=== PATIENT | male | born 1960 | race Caucasian/White ===

== ENCOUNTER 2016-03-16 15:51 | Inpatient (IN) | payer MEDICAID ==
[2016-03-16] MEDS ORDERED: MORPHINE SULFATE 4 MG/ML SYRINGE ONE ×2 (16:45→18:27)
[2016-03-16] MEDS ORDERED: SODIUM CHLORIDE 0.9% 1,000 ML ONE (16:45)
[2016-03-16] MEDS ORDERED: KETOROLAC TROMETHAMINE 30 MG/ML 1 ML VIAL ONE (16:45)
[2016-03-16] MEDS ORDERED: TETANUS,DIPHTHERIA TOXOID SYRINGE IM V ONE ×2 (16:47→16:55)
[2016-03-16 17:07] LABS: ABSOLUTE NEUTROPHIL COUNT 14.7 K/mm3 (1.8-7.7); BASO % 0.1 % (0.2-1.0); EOS % 0.1 % (0.9-2.9); HEMOGLOBIN 11.4 gm/l (14.0-18.0); IMM NEUT # 0.1 K/mm3 (0-0.2); IMM NEUT% 0.4 % (0-1); LYMPH # 1.1 (1.0-4.8); LYMPH % 6.6 % (15-45); MEAN CELL VOLUME 93.3 fl (80.0-94.0); MEAN CORPUSCULAR HEMOGLOBIN 30.4 pg (27.0-31.0); MEAN CORPUSCULAR HGB CONC 32.6 g/dl (33.0-37.0); MEAN PLATELET VOLUME 9.7 fl (7.4-10.4); MONO # 0.9 (0.0-0.8); MONO % 5.2 % (4-12); NEUT % 87.6 % (43-75); PLATELET COUNT 262 K/mm3 (130-400); RED CELL DISTRIBUTION WIDTH 11.9 % (11.5-14.5)
[2016-03-16] MEDS ORDERED: CEFTRIAXONE 1 GRAM DUPLEX 50 ML IV ONE (17:15)
[2016-03-16 17:25] LABS: ALB/GLOB RATIO 1.3 (>1.0); ALBUMIN 3.5 gm/dL (3.5-5.7); C-REACTIVE PROTEIN 11.7 mg/dl (<1.0); CALCIUM 8.6 mg/dL (8.6-10.3)
--- NOTE | 2016-03-16 17:28 | RAD ---
EXAMINATION:HAND-RIGHT 3 VIEWS Clinical indication: Possible foreign body at the base of the abdomen. Technique: 3 views of the right hand were obtained. Comparison: None FINDINGS: There is a linear 7 x 3 mm opacity involving the hypothenar aspect of the right hand. This is slightly palmar in orientation and parallels the first metacarpal. No adjacent fracture or focal destruction is identified. No soft tissue gas is seen. There is posttraumatic deformity of the right fifth metacarpal. Periarticular osteophyte formation is also noted at the base of the fifth carpometacarpal articulation. Osteoarthritic change also is noted at the first metacarpal phalangeal joint. There is no dislocation identified. IMPRESSION: 1. Linear 7 x 3 mm radiopaque foreign body hypothenar aspect right hand. 2. Posttraumatic deformity right fifth metacarpal. 3. Osteoarthritis at the base of the fifth carpometacarpal joint. There is also mild degenerative changes of the first metacarpal phalangeal joint.
[2016-03-16] MEDS ORDERED: VANCOMYCIN HCL 1.5 G in SODIUM CHLORIDE 0.9% 500 ML IV ONE (17:45)
[2016-03-16] MEDS ORDERED: MIDAZOLAM HCL 1 MG/ML 2ML VIAL ONE ×2 (18:27→20:15)
[2016-03-16] MEDS ORDERED: LACTATED RINGERS 1,000 ML ONE (19:53)
[2016-03-16] MEDS ORDERED: PROPOFOL 20 ML IV ONE (20:13)
[2016-03-16] MEDS ORDERED: SUCCINYLCHOLINE CHL 20 MG/ML DOSE ONE (20:13)
[2016-03-16] MEDS ORDERED: LIDOCAINE 2% (PRES FREE) 5 ML VIAL ONE (20:13)
[2016-03-16] MEDS ORDERED: FENTANYL 100 MCG/2 ML VIAL ONE ×2 (20:15→20:55)
[2016-03-16] MEDS ORDERED: HYDROMORPHONE HCL 2 MG/ML SYRINGE ONE (21:02)
[2016-03-16] MEDS ORDERED: ONDANSETRON 4 MG/2ML 2 ML VIAL ONE (21:02)
[2016-03-16] MEDS ORDERED: SODIUM CHLORIDE 0.9% 250 ML IV ONE (21:50)
[2016-03-16] MEDS ORDERED: VANCOMYCIN HCL 1.5 G in SODIUM CHLORIDE 0.9% 500 ML IV SCH (22:00)
[2016-03-16] MEDS ORDERED: ONDANSETRON 4 MG/2ML 2 ML VIAL IV PRN (22:09)
[2016-03-16] MEDS: OXYCODONE HCL 5 MG TABLET PO PRN (22:25)
[2016-03-16] MEDS ORDERED: SODIUM CHLORIDE 0.9% FLUSH 10 ML ONE (22:50)
[2016-03-16 22:58] VITALS: BMI 25.9
[2016-03-16] MEDS ORDERED: SODIUM CHLORIDE 0.9% 100 ML IV ONE (23:22)
[2016-03-16] MEDS ORDERED: PUMP TUBING ONE (23:22)
[2016-03-16] MEDS: CEFAZOLIN SODIUM 1 GRAM PREMIX 1 G in Premix (D5W) 50 ml 1 EACH IV SCH (23:25)
[2016-03-16] MEDS: SODIUM CHLORIDE 0.9% 100 ML BAG IV SCH (23:26)
[2016-03-17] MEDS: OXYCODONE HCL 5 MG TABLET PO PRN ×5 (01:16→22:28)
[2016-03-17] MEDS: VANCOMYCIN HCL 1.25 G in SODIUM CHLORIDE 0.9% 250 ML IV SCH ×2 (05:51→17:44)
[2016-03-17] MEDS: CEFAZOLIN SODIUM 1 GRAM PREMIX 1 G in Premix (D5W) 50 ml 1 EACH IV SCH ×3 (08:25→23:29)
--- NOTE | 2016-03-17 10:15 | HP ---
Bryan DANIEL [id number] : 1960 ORTHOPEDIC EMERGENCY DEPARTMENT CONSULTATION DATE OF CONSULTATION: March 16, 2016 HISTORY OF PRESENT ILLNESS: Bryan Daniel is a 56-year-old right-handed male seen for orthopedic hand consultation for a draining abscess of the right hand. The patient is examined with his permission in the presence of his friends. Imaging studies and medical records are reviewed. HISTORY OF INJURY: The patient states that he noted right-hand pain about four days ago. He states that he was doing a lot of wood cutting with using a hatchet. He states that it was a very manually intensive work. About two days ago the hand became swollen and became somewhat painful. Today it has become more painful and notes that there has been an area in the palmar surface of the hand that has been draining. He presented to the emergency department at [facility] where he was examined by Dr. Alicea the emergency department physician. The patient is not certain whether there was a puncture wound of some type into his hand or whether a sliver may have entered this hand. Dr. Alicea examined him, noted that there was a draining abscess, took some laboratory work, identified a markedly elevated white count and CRP and he then did a superficial puncture of the wound and noted that there was drainage and contacted me for orthopedic consultation. Cultures were also taken by Dr. Alicea at the time of his evaluation. The patient's current complaints are of pain in the right hand. He is unable to make a full fist, he has intact sensation, but has difficulty moving his fingers. PAST MEDICAL HISTORY: He denies any history of systemic illnesses although admits that he may have had a history of hypertension. PAST SURGICAL HISTORY: Hernia repair. SOCIAL HISTORY: He smokes one pack of cigarettes per day. He drinks alcohol occasionally and he occasionally smokes marijuana. He is employed as a construction services technician. REVIEW OF SYSTEMS: HEENT: Unremarkable. CARDIOVASCULAR: Unremarkable. GI: Unremarkable. : Unremarkable. ORTHOPEDIC: See chief complaint. PHYSICAL EXAMINATION: GENERAL: Reveals a well nourished, well developed male who is cooperative with the examination. VITAL SIGNS: The patient is 6 feet tall and weighs 185 pounds. FOCUSED EXAM: Inspection of the right hand indicates a very heavily calloused hand, multiple healing lacerations are noted on the hand. On the central portion of the hand overlying the thenar eminence there is a draining abscess with purulent drainage. There is palmar erythema. He has fingers in the flexed position. He has pain when we passively extend the fingers. Sensation is grossly intact with expected sharp dull discrimination. He has good peripheral pulses. IMAGING STUDIES: X-rays of the right hand indicate the presence of a radiopaque foreign body wtih the density similar to wood in the area of the web space between the thumb and the second metacarpal. DIAGNOSTIC IMPRESSION: Abscess right hand. PLAN: We discussed with the patient various treatment options. Because of the size of the abscess and drainage and the fact that he has developed swelling, elevated white count and pain upon passive extension we are going to treat this as being a surgical emergency. We discussed with him going to the operating room for an incision and drainage of exploration of the hand. The surgery itself has been explained to him in detail along with expectant, benefits, potential risks, complications but alternative methods of treatment. He appears to understand and requests that we proceed with surgery. He will be admitted for wound care and antibiotics. Job [id number] Cc: Broseley Janiya
--- NOTE | 2016-03-17 10:37 | OP ---
Bryan BARBER : 1960 [id number] DATE OF SERVICE: March 16, 2016 SURGEON: Maxwell Momin D.O. ANESTHESIA: By Jaida PerryNKayla PREOPERATIVE DIAGNOSIS: Abscess right-hand. POSTOPERATIVE DIAGNOSIS: Deep abscess right-hand including carpal tunnel. SURGERY PERFORMED: EXPLORATION OF HAND WITH INCISION OF CARPAL TUNNEL AND IRRIGATION AND DRAINAGE WITH INTRAOPERATIVE CULTURES. INDICATIONS FOR SURGERY: This is a 56-year-old male who has presented to the emergency department within infected hand with purulent drainage. He is in extreme pain. He had an elevated white count, elevated CRP. It was felt that he had an abscess that was a surgical emergency. He was taken to the operative suite. The surgery itself is been explained the patient in detail along with the expected benefits and potential risks and complications in alternative methods of treatment, he appears to understand and request that we proceeded with the surgery. DESCRIPTION OF PROCEDURE: This 56-year-old male was taken to the operating suite and positioned on the operating table. General anesthesia was administered by the duty manager. After adequate anesthesia has been obtained a tourniquet was placed about the right. The patient's right arm. A time out was performed and the patient and operative site were confirmed. The right upper extremity was prepped and draped in the usual fashion. The tourniquet was not elevated however. We debrided the palmar surface of the hand around the thenar eminence where there was excoriation of soft tissue and some superficial drainage. However, after we have completed our superficial debridement and cultures were taken it was felt that further exploration was indicated because of the tension in the hand and the patient's preoperative symptoms. We then with a #15 blade made a sharp incision into the carpal tunnel. There was immediate return of pus. We then took additional cultures and express the remainder of the pus from within the carpal tunnel. We then irrigated the carpal tunnel with 1 L of normal saline solution. The carpal tunnel was then packed with 0.25 inch Iodoform gauze. A bulky dressings then enforced with a volar fiberglass split was applied. The patient tolerated the procedure well and was sent to the postanesthesia recovery in satisfactory and stable condition. The tourniquet was not inflated the entire procedure was performed with the assistance of Loupe magnification. The estimated blood loss was minimal. Job [id number] Cc: [facility]
[2016-03-17] MEDS: SODIUM CHLORIDE 0.9% 100 ML BAG IV SCH ×2 (22:29→23:29)
[2016-03-18] MEDS: OXYCODONE HCL 5 MG TABLET PO PRN ×5 (05:09→21:38)
[2016-03-18] MEDS: VANCOMYCIN HCL 1.25 G in SODIUM CHLORIDE 0.9% 250 ML IV SCH (05:09)
[2016-03-18 06:06] LABS: VANCOMYCIN TROUGH 7.5 ug/ml (5.0-10.0)
[2016-03-18 07:55] LABS: ABSOLUTE NEUTROPHIL COUNT 11.6 K/mm3 (1.8-7.7); BASO % 0.2 % (0.2-1.0); EOS % 0.3 % (0.9-2.9); HEMATOCRIT 35.7 % (32.0-52.0); HEMOGLOBIN 11.5 gm/l (14.0-18.0); IMM NEUT% 0.3 % (0-1); LYMPH # 1.2 (1.0-4.8); LYMPH % 8.4 % (15-45); MEAN CELL VOLUME 94.7 fl (80.0-94.0); MEAN CORPUSCULAR HEMOGLOBIN 30.5 pg (27.0-31.0); MEAN CORPUSCULAR HGB CONC 32.2 g/dl (33.0-37.0); MEAN PLATELET VOLUME 10.5 fl (7.4-10.4); MONO # 0.9 (0.0-0.8); MONO % 6.5 % (4-12); NEUT % 84.3 % (43-75); PLATELET COUNT 232 K/mm3 (130-400); RED CELL DISTRIBUTION WIDTH 11.7 % (11.5-14.5)
[2016-03-18] MEDS ORDERED: VANCOMYCIN HCL 1 G in SODIUM CHLORIDE 0.9% 230 ML IV ONE (08:00)
[2016-03-18] MEDS: CEFAZOLIN SODIUM 1 GRAM PREMIX 1 G in Premix (D5W) 50 ml 1 EACH IV SCH ×2 (08:21→16:20)
--- NOTE | 2016-03-18 08:33 | PDOC43 ---
- Subjective Findings: reasonable comfortable overnight- overall states that his hand is feeling better Subjective: Denies Nausea, Denies Vomiting - Objective Vital Signs Temperature 98.4 F 03/18/16 08:01 Pulse Rate 60 03/18/16 08:01 Respiratory Rate 18 03/18/16 08:01 Blood Pressure 123/73 03/18/16 08:01 O2 Saturation by Pulse Oximetry 98 03/18/16 08:01 Oxygen Delivery Method Room Air Oxygen Flow Rate 0 Laboratory 03/18/16 05:30 03/18/16 05:15 03/18/16 03/18/16 05:30 05:15 RBC 3.77 L MCV 94.7 H MCHC 32.2 L Estimated GFR 101 H Active Medication Orders Category Date Time Status Vancomycin HCl 1 g Med 03/18/16 08:00 Active Sodium Chloride 0.9% 230 ml IV X1 Intake and Output 03/16/16 03/17/16 03/18/16 23:59 23:59 23:59 Intake Total 780 200 Balance 780 200 General: Afebrile (Tmax<100 x24 hours) HEENT: Mucous membr. moist/pink Lungs: Normal Air Movement Cardiovascular: Regular Rate and Rhythm Abdomen: Soft Skin: Normal Color, Warm, Dry, Intact Neurological: Alert, Oriented x 4 Psych/Mental Status: Normal Affect, Normal Mood - Right Upper Extremity Incision: Dressing Clean/Dry/Intact (changed today. He does have some superficial maceration with epidermolysis surrounding incision which is packed with iodophore gauze. Minimal drainage- non purulent. Non-malodorous. Minimal surrounding erythema. Moderate diffuse edema) Motor: Finger Extensors: 4/5 (restricted but not acutely painful), Wrist Flexors : 4/5 (restricted but not acutely painful) Gross Sensation to Light Touch: Present: Median Nerve, Ulnar Nerve, Radial Nerve Capillary Refill: < 3 Seconds Motion: gentle active/passive finger flexion is reasonably well tolerated without marked pain - Problems (1) Palmar space infection of right hand Status: Acute Assessment/Plan: Clinically improved as far as exam, WBC, and fevers are concerned. Looks like isolate is likely MRSA although still waiting for ID of gram negative bacilli. I suspect that he will need a relatively extended period of treatment including Abx, local wound care and even possibility of repeat I/D depending on response to treatment. I did ask for hospitalist consult today to assist with treatment plan and appreciate their input specifically regarding antibiotic choice and outpatient medical management Will follow. D/C [facility] and social group worker are working to establish primary care physician as well as work with access/insurance issues
[2016-03-18] MEDS ORDERED: LORAZEPAM 2 MG/ML 1ML SDV IV PRN (11:20)
[2016-03-18] MEDS ORDERED: LIDOCAINE 1% (PRES FREE) 5 ML VIAL PF PRN (11:20)
--- NOTE | 2016-03-18 11:24 | CONS ---
Bryan [place] [id number] DATE OF ADMISSION: March 16, 2016 DATE OF CONSULTATION: March 18, 2016 PHYSICIAN REQUESTING CONSULTATION: Dr. Michael Gibbons REASON FOR CONSULTATION: For assistance in managing infection involving the right hand. PROCEDURES: PERFORMED DURING THE HOSPITALIZATION: Include exploration of the hand with incision of the carpal tunnel and irrigation and drainage with intraoperative cultures performed in March [address] Momin. TO SUMMERIZE THE ADMISSION AND HOSPITAL COURSE: The patient is a 56-year-old right handed male without any chronic medical problems who presented with complaints of right hand pain and swelling approximately 4 to 5 days prior to admission. He does not recall any injury. He is active with using his hands outdoors. Has been cutting lots of wood at home with a hatchet. 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 He does not recall any puncture wounds. When he initially presented, he had an abscess on his hand and had a little bit of drainage that was cultured by Dr. Alicea. That culture grew methicillin resistant Staphylococcus aureus. He subsequently underwent intraoperative incision and drainage of the wound with two culture perform intraoperatively, all three cultures are growing methicillin resistant Staphylococcus aureus. There is gram negative bacilli on the gram stain seen in one of the intraoperative cultures. At this time no growth has been identified and he has been treated with vancomycin monotherapy with improvement in his symptoms. He has been afebrile throughout his stay. His white blood cell count is improving down from 16.8 to 13.7. He did have an elevated sed rate of 30. He had plain film x-ray's of the right hand showing a linear foreign body measuring 7 x 3 mm, but no evidence of osteomyelitis. The foreign body was not described on the operative report, but presumably was irrigated out with the procedure. PAST MEDICAL HISTORY: Negative for any chronic medical problems. He denies any prior hospitalizations or any regular healthcare. PAST SURGICAL HISTORY: Significant for a right inguinal hernia repair as a child. ALLERGIES: He has no known drug allergies. CURRENT MEDICATIONS: He takes no prescription medications. FAMILY HISTORY: Not contributory. SOCIAL HISTORY: He is currently staying with a friend. He has smoked a pack of cigarettes a day for 30 pack years. 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 He drinks occasional alcohol and occasional marijuana. He works in construction. He is single. He has no local family and no dependents. PHYSICAL EXAMINATION: VITAL SIGNS: Currently, show a temperature of 98.4, pulse 60, blood pressure 123/73, respirations 18, oxygen saturation 98% on room air. Body mass index is 26.0, weight is 86.9 kg. GENERAL: This is well-developed, well-nourished male in no acute distress. HEENT: Unremarkable. NECK: Supple without lymphadenopathy or thyromegaly. LUNGS: Clear to auscultation bilaterally. CARDIOVASCULAR: Reveals a regular rate and rhythm without a murmur. ABDOMEN: Soft, nontender, nondistended with positive bowel sounds. EXTREMITIES: Show a surgical dressings over the right hand. No evidence of cellulitis of the arm is seen. His lower extremities show no edema. NEUROLOGIC: Nonfocal. LABORATORY STUDIES: He had initial CBC with a white count of 16.8 now down to 13.7. His hemoglobin was 11.5 and his platelet count was 232,000. His chemistry profile showed a sodium of 134, potassium 3.9, carbon dioxide 26, BUN 18, creatinine 1.0, glucose was 124. Liver function tests were normal. His C-reactive protein was elevated at 11.7 and no other laboratory studies were done. DIAGNOSTICS: He had an x-ray to the right hand with the result as mentioned above. ASSESSMENT: The patient has deep space right hand infection with abscess, status post incision and drainage on March 16 with methicillin resistant Staphylococcus aureus and unspecified gram negative bacilli currently responding to vancomycin. PLAN: To consult with [facility] regarding optimal therapy. Concern about possible IV drug use and the risk of placement of a PICC line is a concern. It is unclear though whether he would be a candidate for any oral therapies especially given lack of resources. He will likely need wound care follow up and IV medications and will work on obtaining follow up with infectious disease if their able to see the patient who lives in [place]. JOB: [id number] CC: Dr. Michael Gibbons [facility] in [place]
[2016-03-18] MEDS ORDERED: ENEMA--adult 1 EACH PR PRN (16:30)
[2016-03-18] MEDS: POLYETHYLENE GLYCOL 3350 17 G POWD.SUSP PO PRN (17:28)
[2016-03-18] MEDS: VANCOMYCIN HCL 2 G in SODIUM CHLORIDE 0.9% 500 ML IV SCH (17:53)
[2016-03-18] MEDS: DOCUSATE SODIUM 100 MG CAPSULE PO SCH (21:39)
[2016-03-19] MEDS: SODIUM CHLORIDE 0.9% 100 ML BAG IV SCH (00:15)
[2016-03-19] MEDS: CEFAZOLIN SODIUM 1 GRAM PREMIX 1 G in Premix (D5W) 50 ml 1 EACH IV SCH ×2 (00:15→09:00)
[2016-03-19] MEDS: OXYCODONE HCL 5 MG TABLET PO PRN ×7 (02:17→23:33)
[2016-03-19] MEDS: VANCOMYCIN HCL 2 G in SODIUM CHLORIDE 0.9% 500 ML IV SCH ×2 (06:05→19:17)
[2016-03-19] MEDS: DOCUSATE SODIUM 100 MG CAPSULE PO SCH ×2 (09:40→20:46)
--- NOTE | 2016-03-19 10:25 | PDOC43 ---
- Subjective Chief Complaint: Rt hand pain and redness Subjective: Reports Pain Tolerable, Reports Tolerating Diet Well, Denies Fever - Objective Vital Signs Temperature 98.1 F 03/19/16 07:57 Pulse Rate 70 03/19/16 07:57 Respiratory Rate 17 03/19/16 07:57 Blood Pressure 118/72 03/19/16 07:57 O2 Saturation by Pulse Oximetry 96 03/19/16 07:57 Oxygen Delivery Method Room Air Oxygen Flow Rate 0 Intake and Output 03/18/16 03/19/16 03/20/16 06:59 06:59 06:59 Intake Total 980 1620 Balance 980 1620 General: Alert, Oriented x3, Cooperative, No Acute Distress HEENT: Mucous membr. moist/pink Lungs: Clear to Auscultation Bilaterally Cardiovascular: Regular Rate and Rhythm Abdomen: Soft, Normal Bowel Sounds, Non-Distended, No Tenderness Wound: Dressing Clean/Dry/Intact, Other (erythema improving) Laboratory 03/18/16 05:30 03/18/16 05:15 Current Medications: Current meds reviewed in EMR. - Problems: Assessment/Plan (1) Palmar space infection of right hand Status: Acute Assessment/Plan: Caused by MRSA with many social barriers to outpatient management, refusing PICC at this time and is homeless without transportation-working with care management, anticipate 2 weeks of IV vancomycin (2) IV drug abuse Status: Chronic Assessment/Plan: By history, last used IV meth one year ago VTE Prophylaxis: mech measures Disposition: To be determined, working with care management
[2016-03-19] MEDS: VANCOMYCIN HCL 1.75 G in SODIUM CHLORIDE 0.9% 500 ML IV SCH (20:42)
[2016-03-19] MEDS: POLYETHYLENE GLYCOL 3350 17 G POWD.SUSP PO PRN (20:46)
[2016-03-20] MEDS: SODIUM CHLORIDE 0.9% 100 ML BAG IV SCH ×2 (00:14→23:18)
[2016-03-20] MEDS: OXYCODONE HCL 5 MG TABLET PO PRN ×7 (02:43→22:21)
[2016-03-20] MEDS ORDERED: PUMP TUBING ONE (08:12)
[2016-03-20] MEDS: VANCOMYCIN HCL 1.75 G in SODIUM CHLORIDE 0.9% 500 ML IV SCH ×2 (08:24→19:15)
[2016-03-20] MEDS: DOCUSATE SODIUM 100 MG CAPSULE PO SCH ×2 (08:24→21:03)
[2016-03-20] MEDS: BISACODYL 10 MG SUP PR PRN (08:24)
--- NOTE | 2016-03-20 11:09 | PDOC43 ---
- Subjective Chief Complaint: Rt hand pain and redness Subjective: Reports Pain Tolerable, Reports Tolerating Diet Well, Denies Fever - Objective Vital Signs Temperature 97.9 F 03/20/16 06:59 Pulse Rate 74 03/20/16 06:59 Respiratory Rate 16 03/20/16 07:14 Blood Pressure 126/81 03/20/16 06:59 O2 Saturation by Pulse Oximetry 98 03/20/16 06:59 Oxygen Delivery Method Room Air Oxygen Flow Rate 0 Intake and Output 03/19/16 03/20/16 03/21/16 06:59 06:59 06:59 Intake Total 1620 2257 Balance 1620 2257 General: Alert, No Acute Distress HEENT: Mucous membr. moist/pink Lungs: Clear to Auscultation Bilaterally Cardiovascular: Regular Rate and Rhythm Abdomen: Soft, Normal Bowel Sounds, Non-Distended, No Tenderness Extremities: No Edema Wound: Dressing Clean/Dry/Intact, Erythema (improving) Laboratory 03/18/16 05:30 03/18/16 05:15 03/19/16 17:40 Vancomycin Trough 15.4 H Current Medications: Current meds reviewed in EMR. - Problems: Assessment/Plan (1) Palmar space infection of right hand Status: Acute Assessment/Plan: Caused by MRSA with many social barriers to outpatient management, is homeless without transportation-working with care management, anticipate 2 weeks of IV vancomycin, consented to PICC today (2) IV drug abuse Status: Chronic Assessment/Plan: By history, last used IV meth one year ago VTE Prophylaxis: mech measures Disposition: To be determined, working with care management
--- NOTE | 2016-03-20 12:40 | PDOC43 ---
- Subjective Findings: Ortho POD 4 R hand palmar I and D Patient awoken from sleep this am but quickly alert and oriented. Hand pain is well controlled. Concerned about constipation. No other complaints. Denies CP/ SOB/NV. Taking a regular diet and positive flatus. States the hand is feeling better after antibiotic administration. Subjective: Denies Chest Pain, Denies Shortness of Breath, Denies Nausea, Denies Vomiting, Denies Fever - Objective Vital Signs Temperature 97.9 F 03/20/16 06:59 Pulse Rate 74 03/20/16 06:59 Respiratory Rate 16 03/20/16 07:14 Blood Pressure 126/81 03/20/16 06:59 O2 Saturation by Pulse Oximetry 98 03/20/16 06:59 Oxygen Delivery Method Room Air Oxygen Flow Rate 0 Laboratory 03/18/16 05:30 03/18/16 05:15 03/19/16 17:40 Vancomycin Trough 15.4 H Active Medication Orders Category Date Time Status Bisacodyl [Dulcolax] Med 03/18/16 16:30 Active 10 mg VA DAILY PRN Docusate Sodium [Colace] Med 03/18/16 21:00 Active 100 mg PO BID Lidocaine 1% (Pres Free) Med 03/18/16 11:20 Active 2 - 5 ml PF X1 PRN Lorazepam [Ativan] Med 03/18/16 11:20 Active 0.5 - 1 mg IV X1 PRN Na Phos,M-B/Na Phos,Di-Ba [Fleet Adult Enema] Med 03/18/16 16:30 Active 1 each VA X1 PRN Polyethylene Glycol 3350 [Miralax] Med 03/18/16 16:29 Active 17 g PO DAILY PRN Vancomycin HCl 1.75 g Med 03/19/16 19:30 Active Sodium Chloride 0.9% 500 ml IV Q12H Intake and Output 03/18/16 03/19/16 03/20/16 23:59 23:59 23:59 Intake Total 960 1460 2006 Balance 960 1460 2006 Skin: Other (R wrist and hand volar slab splint intact and in good repair.) Peripheral Pulses: Right Radial: 1+ - Right Upper Extremity Incision: Dressing Clean/Dry/Intact (volar slap with Xero, abd, gauze, and elaine.) , Shadow Drainage (minimal), Drainage (minimal), Erythema (focal to site of palmar debridement, swelling moderate to palm), Well Approximated (debridement open for secondary healing,), No Dressing Saturated, No Rash, No Mikel Intact Motor: Extensor Pollicis Longus: 3/5 (painful inhibition however not disproportionate), Finger Flexors: 3/5 (painful inhibition however not disproportionate), Finger Extensors: 3/5 (painful inhibition however not disproportionate), Wrist Flexors: 3/5 (painful inhibition however not disproportionate), Wrist Extensors: 3/5 (painful inhibition however not disproportionate), Intrinsics: 3/5 (painful inhibition however not disproportionate), Biceps: 5/5, Triceps: 5/5, Deltoid: 5/5 Gross Sensation to Light Touch: Present: Median Nerve, Ulnar Nerve, Radial Nerve , Axillary Nerve Motion: Patient tolerated passive flexion and extension of digits without pain out of proportion. Distal M/S/C was intact. - Additional Comments Ortho POD 4 R hand palmar I and D. Labs positive for MRSA and currently on Vanco q 12 with improvement, no current leukocytosis. 1. Wound evaluated, re dressed and splinted. 2. Continue Vanco administration per pharmacy/ Hospitalist's input. 3. Continue planning for outpatient management of IV antibiotic administration and wound care. 4. Bowel protocol for constipation. 5. Pain medication as ordered, call for modification prn. 6. Appreciate Hospitalist's care.
[2016-03-21] MEDS: OXYCODONE HCL 5 MG TABLET PO PRN ×8 (01:47→23:59)
[2016-03-21] MEDS ORDERED: SODIUM CHLORIDE 0.9% FLUSH 10 ML ONE (07:18)
[2016-03-21] MEDS ORDERED: IV START KIT ONE (07:18)
[2016-03-21 07:53] LABS: VANCOMYCIN TROUGH 14.6 ug/ml (5.0-10.0)
[2016-03-21] MEDS: VANCOMYCIN HCL 1.75 G in SODIUM CHLORIDE 0.9% 500 ML IV SCH ×2 (08:14→19:53)
[2016-03-21] MEDS: DOCUSATE SODIUM 100 MG CAPSULE PO SCH ×2 (10:02→21:08)
--- NOTE | 2016-03-21 12:57 | RAD ---
CXR FOR PLACEMENT/LINE or TUBE COMPARISON: None. HISTORY: Check PICC position. FINDINGS: Views: Frontal chest. Support equipment: Left arm placement of [place] PICC, the tip at the cavoatrial junction level. Lungs: Normal. Heart and vessels: Normal Trachea and bronchi: Normal Mediastinum and garret: Normal Costophrenic sulci: Normal Chest wall: Normal. IMPRESSION: 1. Satisfactory position of the PICC, the tip at the cavoatrial junction level. The results were called to Екатерина Cunningham RN 04/07/2016 at 12:52
--- NOTE | 2016-03-21 13:32 | PDOC43 ---
- Subjective Chief Complaint: Rt hand pain and redness Denies pain or other symptoms. Just received PICC line. - Objective Vital Signs Temperature 98.3 F 03/21/16 07:00 Pulse Rate 59 03/21/16 07:00 Respiratory Rate 18 03/21/16 08:00 Blood Pressure 116/59 03/21/16 07:00 O2 Saturation by Pulse Oximetry 97 03/21/16 07:00 Oxygen Delivery Method Room Air Oxygen Flow Rate 0 Intake and Output 03/20/16 03/21/16 03/22/16 06:59 06:59 06:59 Intake Total 2257 2190 490 Output Total 1 Balance 2257 2190 489 General: Alert, Oriented x3, Cooperative, No Acute Distress HEENT: Mucous membr. moist/pink Lungs: Clear to Auscultation Bilaterally Cardiovascular: Regular Rate and Rhythm Abdomen: Soft, Normal Bowel Sounds, No Tenderness, No Masses Extremities: Other (right hand dressed, PICC line in LUE), No Edema Skin: Normal Color Neurological: Normal Speech Psych/Mental Status: Normal Mood Laboratory 03/18/16 05:30 03/21/16 07:00 03/21/16 07:00 Vancomycin Trough 14.6 H Current Medications: Current meds reviewed in EMR. - Problems: Assessment/Plan (1) Palmar space infection of right hand Status: Acute Assessment/Plan: Caused by MRSA with many social barriers to outpatient management, is homeless without transportation-working with care management, anticipate 2 weeks of IV vancomycin, PICC placed today. (2) IV drug abuse Status: Chronic Assessment/Plan: By history, last used IV meth one year ago VTE Prophylaxis: ASA started today. Disposition: To be determined, working with care management
[2016-03-21] MEDS: ASPIRIN (ENTERIC COATED) 325 MG TABLET.EC PO SCH (14:11)
[2016-03-21] MEDS: POLYETHYLENE GLYCOL 3350 17 G POWD.SUSP PO SCH (14:11)
[2016-03-21] MEDS ORDERED: NICOTINE POLACRILEX 2 MG LOZENGE PO PRN (14:21)
[2016-03-21] MEDS: NICOTINE 21 MG PATCH 1 EACH TD SCH (14:33)
[2016-03-21] MEDS: BISACODYL 10 MG SUP PR PRN (18:09)
[2016-03-22] MEDS: OXYCODONE HCL 5 MG TABLET PO PRN ×7 (03:01→22:16)
[2016-03-22] MEDS ORDERED: PUMP TUBING ONE (08:21)
[2016-03-22] MEDS: VANCOMYCIN HCL 1.75 G in SODIUM CHLORIDE 0.9% 500 ML IV SCH ×2 (08:24→19:27)
[2016-03-22] MEDS: SODIUM CHLORIDE 0.9% 100 ML BAG IV SCH ×2 (08:25)
[2016-03-22] MEDS: DOCUSATE SODIUM 100 MG CAPSULE PO SCH ×2 (08:25→22:16)
[2016-03-22] MEDS: ASPIRIN (ENTERIC COATED) 325 MG TABLET.EC PO SCH (08:26)
[2016-03-22] MEDS: POLYETHYLENE GLYCOL 3350 17 G POWD.SUSP PO SCH (08:26)
--- NOTE | 2016-03-22 12:22 | PDOC43 ---
- Subjective Chief Complaint: Rt hand pain and redness Subjective: Reports Pain Tolerable (but on opiates), Reports Tolerating Diet Well, Denies Fever - Objective Vital Signs Temperature 97.8 F 03/22/16 07:03 Pulse Rate 62 03/22/16 07:03 Respiratory Rate 18 03/22/16 07:00 Blood Pressure 134/82 03/22/16 07:03 O2 Saturation by Pulse Oximetry 98 03/22/16 07:03 Oxygen Delivery Method Room Air Oxygen Flow Rate 0 Intake and Output 03/21/16 03/22/16 03/23/16 06:59 06:59 06:59 Intake Total 2190 2917 Output Total 101 Balance 2190 2816 General: Alert, Oriented x3, Cooperative, No Acute Distress HEENT: Mucous membr. moist/pink Lungs: Clear to Auscultation Bilaterally Cardiovascular: Regular Rate and Rhythm Abdomen: Soft, Non-Distended, No Tenderness Extremities: No Edema (except for right hand) Skin: Warm, Dry, Intact Wound: Dressing Clean/Dry/Intact Laboratory 03/18/16 05:30 03/21/16 07:00 Current Medications: Current meds reviewed in EMR. - Problems: Assessment/Plan (1) Palmar space infection of right hand Status: Acute Assessment/Plan: Caused by MRSA with many social barriers to outpatient management, is homeless without transportation-working with care management, anticipate 2 weeks of IV vancomycin, PICC placed 03/21. (2) IV drug abuse Status: Chronic Assessment/Plan: By history, last used IV meth one year ago VTE Prophylaxis: ASA and mech measures. Disposition: To be determined, working with care management
[2016-03-22] MEDS: NICOTINE 21 MG PATCH 1 EACH TD SCH (14:48)
[2016-03-22] MEDS: BISACODYL 10 MG SUP PR PRN (19:27)
[2016-03-23] MEDS: SODIUM CHLORIDE 0.9% 100 ML BAG IV SCH ×2 (01:42→08:05)
[2016-03-23] MEDS: OXYCODONE HCL 5 MG TABLET PO PRN ×7 (01:43→23:13)
[2016-03-23 06:54] LABS: ABSOLUTE NEUTROPHIL COUNT 5.1 K/mm3 (1.8-7.7); BASO # 0.1 K/mm3 (0.0-0.2); BASO % 0.8 % (0.2-1.0); EOS # 0.2 (0.0-0.5); EOS % 3.1 % (0.9-2.9); HEMOGLOBIN 10.7 gm/l (14.0-18.0); IMM NEUT% 0.5 % (0-1); LYMPH # 1.4 (1.0-4.8); LYMPH % 18.8 % (15-45); MEAN CELL VOLUME 95.8 fl (80.0-94.0); MEAN CORPUSCULAR HEMOGLOBIN 30.1 pg (27.0-31.0); MEAN CORPUSCULAR HGB CONC 31.5 g/dl (33.0-37.0); MEAN PLATELET VOLUME 9.2 fl (7.4-10.4); MONO # 0.7 (0.0-0.8); MONO % 9.4 % (4-12); NEUT % 67.4 % (43-75); PLATELET COUNT 379 K/mm3 (130-400); RED CELL DISTRIBUTION WIDTH 11.4 % (11.5-14.5)
[2016-03-23 07:32] LABS: CALCIUM 8.7 mg/dL (8.6-10.3); VANCOMYCIN TROUGH 16.6 ug/ml (5.0-10.0)
[2016-03-23] MEDS ORDERED: PUMP TUBING ONE (07:57)
[2016-03-23] MEDS: VANCOMYCIN HCL 1.75 G in SODIUM CHLORIDE 0.9% 500 ML IV SCH ×2 (08:05→19:55)
[2016-03-23] MEDS: DOCUSATE SODIUM 100 MG CAPSULE PO SCH ×3 (09:58→23:14)
[2016-03-23] MEDS: POLYETHYLENE GLYCOL 3350 17 G POWD.SUSP PO SCH (09:59)
[2016-03-23] MEDS: ASPIRIN (ENTERIC COATED) 325 MG TABLET.EC PO SCH (10:03)
--- NOTE | 2016-03-23 10:42 | PDOC43 ---
- Subjective Chief Complaint: Rt hand pain and redness Pain control is adequate. Eating well. Concerned about swelling on back of hand. - Objective Vital Signs Temperature 98.6 F 03/23/16 07:15 Pulse Rate 62 03/23/16 07:15 Respiratory Rate 16 03/23/16 07:15 Blood Pressure 125/71 03/23/16 07:15 O2 Saturation by Pulse Oximetry 100 03/23/16 07:15 Oxygen Delivery Method Room Air Oxygen Flow Rate 0 Intake and Output 03/22/16 03/23/16 03/24/16 06:59 06:59 06:59 Intake Total 2917 2752 Output Total 101 450 Balance 2816 2302 General: Alert, Oriented x3, Cooperative, No Acute Distress HEENT: Mucous membr. moist/pink Lungs: Clear to Auscultation Bilaterally Cardiovascular: Regular Rate and Rhythm Abdomen: Soft, Normal Bowel Sounds, No Tenderness, No Masses Extremities: Normal Pulses, No Edema Skin: Normal Color Wound: Dressing Clean/Dry/Intact (Right hand with mild edema on dorsum under elaine wrap, no erythema or induration, appears secondary to compression of the splint. Fingers with brisk cap refill.) Neurological: Normal Speech Psych/Mental Status: Normal Mood Laboratory 03/23/16 06:30 03/23/16 06:30 03/23/16 06:30 RBC 3.55 L MCV 95.8 H MCHC 31.5 L RDW 11.4 L Estimated GFR 101 H Vancomycin Trough 16.6 H Current Medications: Current meds reviewed in EMR. - Problems: Assessment/Plan (1) Palmar space infection of right hand Status: Acute Assessment/Plan: Caused by MRSA with many social barriers to outpatient management, is homeless without transportation-working with care management, anticipate 2 weeks of IV vancomycin started 11 p.m. anticipate treatment through at least 04/02, PICC placed 03/21. (2) IV drug abuse Status: Chronic Assessment/Plan: By history, last used IV meth one year ago (3) Anemia Status: Chronic Assessment/Plan: Chronic, exacerbated by hydration, evaluate for underlying condition. VTE Prophylaxis: ASA and mech measures. Disposition: To be determined, working with care management
[2016-03-23] MEDS ORDERED: HYDROMORPHONE HCL 0.5 MG/0.5 ML SYRINGE IV PRN (14:16)
[2016-03-23] MEDS ORDERED: KETOROLAC TROMETHAMINE 30 MG/ML 1 ML VIAL IM ONE (14:17)
[2016-03-23] MEDS: NICOTINE 21 MG PATCH 1 EACH TD SCH (14:34)
--- NOTE | 2016-03-23 19:12 | PDOC43 ---
- Subjective Findings: Patient with moderate pain in the right hand, mostly plantar but some dorsal. No new complaints. Subjective: Reports Flatus, Reports Pain Tolerable, Denies Chest Pain, Denies Shortness of Breath, Denies Nausea, Denies Vomiting, Denies Fever - Objective Vital Signs Temperature 98.0 F 03/23/16 15:06 Pulse Rate 63 03/23/16 15:06 Respiratory Rate 18 03/23/16 15:06 Blood Pressure 149/90 03/23/16 15:06 O2 Saturation by Pulse Oximetry 97 03/23/16 15:06 Oxygen Delivery Method Room Air Oxygen Flow Rate 0 Laboratory 03/23/16 06:30 03/23/16 06:30 03/23/16 06:30 RBC 3.55 L MCV 95.8 H MCHC 31.5 L RDW 11.4 L Estimated GFR 101 H Vancomycin Trough 16.6 H Active Medication Orders Category Date Time Status Aspirin (Enteric Coated) [Ecotrin] Med 03/21/16 13:15 Active 325 mg PO DAILY Bisacodyl [Dulcolax] Med 03/18/16 16:30 Active 10 mg [place] DAILY PRN Docusate Sodium [Colace] Med 03/18/16 21:00 Active 100 mg PO BID Hydromorphone HCl [Dilaudid] Med 03/23/16 14:16 Active 0.5 mg IV Q4H PRN Lidocaine 1% (Pres Free) Med 03/18/16 11:20 Active 2 - 5 ml PF X1 PRN Na Phos,M-B/Na Phos,Di-Ba [Fleet Adult Enema] Med 03/18/16 16:30 Active 1 each [place] X1 PRN Nicotine 21 mg Patch [Nicoderm Cq] Med 03/21/16 14:30 Active 1 each TD Q24H Nicotine Polacrilex Lozenge [Commit Lozenge] Med 03/21/16 14:21 Active 2 mg PO Q1H PRN Ondansetron 4 mg/2ml Vial [Zofran] Med 03/16/16 22:09 Active 4 mg IV Q6H PRN Oxycodone HCl [Roxicodone] Med 03/16/16 22:09 Active 5 - 10 mg PO Q3H PRN Polyethylene Glycol 3350 [Miralax] Med 03/21/16 13:14 Active 17 g PO DAILY Sodium Chloride 0.9% Med 03/16/16 23:30 Active 100 ml IV PRN Sodium Chloride 0.9% Flush [Normal Saline 10ml Flush] Med 03/16/16 23:13 Active 10 ml IV PRN PRN Sodium Chloride 0.9% Flush [Normal Saline 10ml Flush] Med 03/17/16 01:00 Active 10 ml IV Q8HR Vancomycin HCl 1.75 g Med 03/19/16 19:30 Active Sodium Chloride 0.9% 500 ml IV Q12H Intake and Output 03/21/16 03/22/16 03/23/16 23:59 23:59 23:59 Intake Total 2600 2949 2337 Output Total 1 100 1025 Balance 2599 2849 1312 General: Afebrile, No Acute Distress HEENT: EOMI Lungs: Normal Air Movement Abdomen: Soft, No Tenderness Skin: Normal Color Neurological: Grossly Intact, Alert, Oriented x 4 - Right Upper Extremity Incision: Drainage (somewhat purulent appearing drainage, packing removed and replaced), Erythema Gross Sensation to Light Touch: Present: Median Nerve, Ulnar Nerve, Radial Nerve , Axillary Nerve Capillary Refill: < 3 Seconds - Problems (1) Palmar space infection of right hand Status: Acute Assessment/Plan: POD#7 from I&D of right hand for palmar infection 1. Physical Therapy: patient in splint and elevated to reduce swelling 2. Pain Control: added IV Dilaudid to Oxycodone after patient complained of increased pain. Will work to wean off of this. Toradol for antiinflammatory effect. 3. DVT Prophylaxis: mechanical and ambulation 4. Disposition: working on placement, may need repeat I&D if he clinically worsens, will definitely need ongoing abx and wound care 5. Medical Issues: per hospitalist. Naga Miguel MD - Additional Comments Ortho POD 4 R hand palmar I and D. Labs positive for MRSA and currently on Vanco q 12 with improvement, no current leukocytosis. 1. Wound evaluated, re dressed and splinted. 2. Continue Vanco administration per pharmacy/ Hospitalist's input. 3. Continue planning for outpatient management of IV antibiotic administration and wound care. 4. Bowel protocol for constipation. 5. Pain medication as ordered, call for modification prn. 6. Appreciate Hospitalist's care.
[2016-03-24] MEDS: SODIUM CHLORIDE 0.9% 100 ML BAG IV SCH (01:27)
[2016-03-24] MEDS: OXYCODONE HCL 5 MG TABLET PO PRN ×7 (02:38→20:57)
[2016-03-24 06:10] LABS: HEMATOCRIT 34.1 % (32.0-52.0); HEMOGLOBIN 10.8 gm/l (14.0-18.0); MEAN CELL VOLUME 95.3 fl (80.0-94.0); MEAN CORPUSCULAR HEMOGLOBIN 30.2 pg (27.0-31.0); MEAN CORPUSCULAR HGB CONC 31.7 g/dl (33.0-37.0); RED CELL DISTRIBUTION WIDTH 11.5 % (11.5-14.5)
[2016-03-24 06:33] LABS: FERRITIN 62.6 ng/mL (23.9-336.2)
[2016-03-24 06:36] LABS: FOLIC ACID 10.1 ng/mL (>5.9)
[2016-03-24] MEDS: VANCOMYCIN HCL 1.75 G in SODIUM CHLORIDE 0.9% 500 ML IV SCH ×2 (07:17→20:58)
[2016-03-24] MEDS: BISACODYL 10 MG SUP PR PRN (07:37)
[2016-03-24] MEDS: DOCUSATE SODIUM 100 MG CAPSULE PO SCH ×2 (08:58→20:44)
[2016-03-24] MEDS: ASPIRIN (ENTERIC COATED) 325 MG TABLET.EC PO SCH (08:58)
[2016-03-24] MEDS: POLYETHYLENE GLYCOL 3350 17 G POWD.SUSP PO SCH (08:58)
--- NOTE | 2016-03-24 10:29 | PDOC43 ---
- Subjective Findings: Pt seen today c/o pain but still states it is better than three mckeon ago. No new c/o. Subjective: Reports Flatus, Reports Pain Tolerable, Denies Chest Pain, Denies Shortness of Breath, Denies Nausea, Denies Vomiting, Denies Fever - Objective Vital Signs Temperature 97.8 F 03/24/16 07:41 Pulse Rate 61 03/24/16 07:41 Respiratory Rate 16 03/24/16 07:41 Blood Pressure 117/74 03/24/16 07:41 O2 Saturation by Pulse Oximetry 97 03/24/16 07:41 Oxygen Delivery Method Room Air Oxygen Flow Rate 0 Laboratory 03/24/16 05:30 03/23/16 06:30 03/24/16 05:30 RBC 3.58 L MCV 95.3 H MCHC 31.7 L Active Medication Orders Category Date Time Status Aspirin (Enteric Coated) [Ecotrin] Med 03/21/16 13:15 Active 325 mg PO DAILY Bisacodyl [Dulcolax] Med 03/18/16 16:30 Active 10 mg [place] DAILY PRN Docusate Sodium [Colace] Med 03/18/16 21:00 Active 100 mg PO BID Hydromorphone HCl [Dilaudid] Med 03/23/16 14:16 Active 0.5 mg IV Q4H PRN Lidocaine 1% (Pres Free) Med 03/18/16 11:20 Active 2 - 5 ml PF X1 PRN Nicotine 21 mg Patch [Nicoderm Cq] Med 03/21/16 14:30 Active 1 each TD Q24H Nicotine Polacrilex Lozenge [Commit Lozenge] Med 03/21/16 14:21 Active 2 mg PO Q1H PRN Ondansetron 4 mg/2ml Vial [Zofran] Med 03/16/16 22:09 Active 4 mg IV Q6H PRN Oxycodone HCl [Roxicodone] Med 03/16/16 22:09 Active 5 - 10 mg PO Q3H PRN Polyethylene Glycol 3350 [Miralax] Med 03/21/16 13:14 Active 17 g PO DAILY Sodium Chloride 0.9% Med 03/16/16 23:30 Active 100 ml IV PRN Sodium Chloride 0.9% Flush [Normal Saline 10ml Flush] Med 03/16/16 23:13 Active 10 ml IV PRN PRN Sodium Chloride 0.9% Flush [Normal Saline 10ml Flush] Med 03/17/16 01:00 Active 10 ml IV Q8HR Vancomycin HCl 1.75 g Med 03/19/16 19:30 Active Sodium Chloride 0.9% 500 ml IV Q12H Intake and Output 03/22/16 03/23/16 03/24/16 23:59 23:59 23:59 Intake Total 2949 2337 710 Output Total 100 1025 Balance 2849 1312 710 General: Afebrile HEENT: Atraumatic Lungs: Normal Air Movement Abdomen: Non-Distended Neurological: Alert, Oriented x 4 - Right Upper Extremity Incision: Dressing Clean/Dry/Intact Gross Sensation to Light Touch: Present: Median Nerve, Ulnar Nerve, Radial Nerve Capillary Refill: < 3 Seconds - Problems (1) Palmar space infection of right hand Status: Acute Assessment/Plan: POD#8 from I&D of right hand for palmar infection 1. Physical Therapy: patient in splint and elevated to reduce swelling 2. Pain Control: Oxycodone for pain. Limit IV Dilaudid. Toradol for antiinflammatory effect. 3. DVT Prophylaxis: mechanical and ambulation 4. Disposition: working on placement, may need repeat I&D if he clinically worsens, will definitely need ongoing abx and wound care 5. Medical Issues: per hospitalist - Additional Comments Ortho POD 8 R hand palmar I and D. Labs positive for MRSA and currently on Vanco q 12 with improvement, no current leukocytosis. 1. Continue Vanco administration per pharmacy/ Hospitalist's input. 2. Continue planning for outpatient management of IV antibiotic administration and wound care. Steps consult requested by Dr. Miguel 4. Bowel protocol for constipation. 5. Pain medication as ordered, call for modification prn. 6. Appreciate Hospitalist's care.
[2016-03-24] MEDS: MORPHINE SULFATE 15 MG TAB.PRT.SR PO SCH ×2 (12:48→20:44)
[2016-03-24] MEDS: NICOTINE 21 MG PATCH 1 EACH TD SCH (15:11)
[2016-03-25] MEDS: OXYCODONE HCL 5 MG TABLET PO PRN ×8 (00:03→21:08)
[2016-03-25] MEDS: MORPHINE SULFATE 15 MG TAB.PRT.SR PO SCH ×4 (00:27→21:08)
[2016-03-25] MEDS: SODIUM CHLORIDE 0.9% 100 ML BAG IV SCH ×2 (03:29→08:00)
[2016-03-25] MEDS ORDERED: PUMP TUBING ONE ×2 (07:53→20:31)
[2016-03-25] MEDS: VANCOMYCIN HCL 1.75 G in SODIUM CHLORIDE 0.9% 500 ML IV SCH ×2 (08:00→20:42)
[2016-03-25] MEDS: DOCUSATE SODIUM 100 MG CAPSULE PO SCH (09:06)
[2016-03-25] MEDS: ASPIRIN (ENTERIC COATED) 325 MG TABLET.EC PO SCH (09:06)
[2016-03-25] MEDS: POLYETHYLENE GLYCOL 3350 17 G POWD.SUSP PO SCH (09:06)
--- NOTE | 2016-03-25 11:56 | PDOC43 ---
- Subjective Findings: Pt seen today. No new c/o but is still having moderate pain at times. He is receiving both short acting and long acting opiods.He was evaluated by [facility] yesterday with a bandage change. Please see there note. PICC in place and is waiting for placement to [facility] Subjective: Reports Flatus (Positive BM during stay), Reports Pain Tolerable ( When he gets his meds), Denies Chest Pain, Denies Shortness of Breath, Denies Nausea, Denies Vomiting, Denies Fever - Objective Vital Signs Temperature 98.1 F 03/25/16 08:06 Pulse Rate 63 03/25/16 08:06 Respiratory Rate 17 03/25/16 08:06 Blood Pressure 112/62 03/25/16 08:06 O2 Saturation by Pulse Oximetry 96 03/25/16 08:06 Oxygen Delivery Method Room Air Oxygen Flow Rate 0 Laboratory 03/24/16 05:30 03/23/16 06:30 Active Medication Orders Category Date Time Status Aspirin (Enteric Coated) [Ecotrin] Med 03/21/16 13:15 Active 325 mg PO DAILY Bisacodyl [Dulcolax] Med 03/18/16 16:30 Active 10 mg [place] DAILY PRN Docusate Sodium [Colace] Med 03/18/16 21:00 Active 100 mg PO BID Lidocaine 1% (Pres Free) Med 03/18/16 11:20 Active 2 - 5 ml PF X1 PRN Morphine Sulfate [Ms Contin] Med 03/24/16 21:00 Active 15 mg PO Q8H Nicotine 21 mg Patch [Nicoderm Cq] Med 03/21/16 14:30 Active 1 each TD Q24H Nicotine Polacrilex Lozenge [Commit Lozenge] Med 03/21/16 14:21 Active 2 mg PO Q1H PRN Ondansetron 4 mg/2ml Vial [Zofran] Med 03/16/16 22:09 Active 4 mg IV Q6H PRN Oxycodone HCl [Roxicodone] Med 03/24/16 11:23 Active 10 mg PO Q3H PRN Polyethylene Glycol 3350 [Miralax] Med 03/21/16 13:14 Active 17 g PO DAILY Sodium Chloride 0.9% Med 03/16/16 23:30 Active 100 ml IV PRN Sodium Chloride 0.9% Flush [Normal Saline 10ml Flush] Med 03/16/16 23:13 Active 10 ml IV PRN PRN Sodium Chloride 0.9% Flush [Normal Saline 10ml Flush] Med 03/17/16 01:00 Active 10 ml IV Q8HR Vancomycin HCl 1.75 g Med 03/19/16 19:30 Active Sodium Chloride 0.9% 500 ml IV Q12H Intake and Output 03/23/16 03/24/16 03/25/16 23:59 23:59 23:59 Intake Total 2337 3963 705 Output Total 1025 2 Balance 1312 3963 703 General: Afebrile HEENT: Atraumatic Lungs: Normal Air Movement Abdomen: Soft, Non-Distended Skin: Normal Color Neurological: Alert Psych/Mental Status: Normal Affect, Normal Mood - Right Upper Extremity Incision: Dressing Clean/Dry/Intact Motor: Extensor Pollicis Longus: 3/5, Finger Flexors: 3/5, Finger Extensors: 3/5 Gross Sensation to Light Touch: Present: Median Nerve, Ulnar Nerve Capillary Refill: < 3 Seconds Motion: Stiff and painful with both active and passive rom flex/ext of fingers. Similar to that of exam yesterday. - Problems (1) Palmar space infection of right hand Status: Acute Assessment/Plan: POD#9 from I&D of right hand for palmar infection 1. Physical Therapy: patient in splint and elevated to reduce swelling. Encouraged both active and passive motion of fingers 2. Pain Control: Oxycodone for pain. Limit IV Dilaudid. Toradol for antiinflammatory effect. 3. DVT Prophylaxis: mechanical and ambulation 4. Disposition: working on placement, may need repeat I&D if he clinically worsens, will definitely need ongoing abx and wound care 5. Medical Issues: per hospitalist - Additional Comments Ortho POD 9 R hand palmar I and D. Labs positive for MRSA and currently on Vanco q 12 with improvement, no current leukocytosis. 1. Continue Vanco administration per pharmacy/ Hospitalist's input. 2. Continue planning for outpatient management of IV antibiotic administration and wound care. Steps consult requested by Dr. Miguel 4. Bowel protocol for constipation. 5. Pain medication as ordered, call for modification prn. 6. Appreciate Hospitalist's care.
--- NOTE | 2016-03-25 13:32 | PDOC43 ---
- Subjective Chief Complaint: Rt hand pain and redness Subjective: Reports Pain Tolerable, Reports Tolerating Diet Well, Denies Fever - Objective Vital Signs Temperature 98.1 F 03/25/16 08:06 Pulse Rate 63 03/25/16 08:06 Respiratory Rate 17 03/25/16 08:06 Blood Pressure 112/62 03/25/16 08:06 O2 Saturation by Pulse Oximetry 96 03/25/16 08:06 Oxygen Delivery Method Room Air Oxygen Flow Rate 0 Intake and Output 03/24/16 03/25/16 03/26/16 06:59 06:59 06:59 Intake Total 2097 3958 535 Output Total 575 2 Balance 1522 3956 535 General: Alert, Oriented x3, Cooperative, No Acute Distress HEENT: Mucous membr. moist/pink Lungs: Clear to Auscultation Bilaterally Cardiovascular: Regular Rate and Rhythm Abdomen: Soft, Normal Bowel Sounds, Non-Distended, No Tenderness Extremities: Other (right hand covered with bulky dressing, defer to ortho) Peripheral Pulses: Radial (L): 2+, Radial (R): 2+ Skin: Warm, Dry, Intact Wound: Dressing Clean/Dry/Intact Laboratory 03/24/16 05:30 03/23/16 06:30 Current Medications: Current meds reviewed in EMR. - Problems: Assessment/Plan (1) Palmar space infection of right hand Status: Acute Assessment/Plan: Caused by MRSA with many social barriers to outpatient management, is homeless without transportation-working with care management, anticipate 2 weeks of IV vancomycin started 11 p.m. anticipate treatment through at least 04/02, PICC placed 03/21. (2) IV drug abuse Status: Chronic Assessment/Plan: By history, last used IV meth one year ago VTE Prophylaxis: ASA and mech measures. Disposition: SNF placement pending bed availability, working with care management
[2016-03-25] MEDS: NICOTINE 21 MG PATCH 1 EACH TD SCH (15:02)
[2016-03-25] MEDS: BISACODYL 10 MG SUP PR PRN (17:01)
[2016-03-26] MEDS: OXYCODONE HCL 5 MG TABLET PO PRN ×8 (00:11→21:16)
[2016-03-26] MEDS: DOCUSATE SODIUM 100 MG CAPSULE PO SCH ×3 (01:52→21:16)
[2016-03-26] MEDS: SODIUM CHLORIDE 0.9% 100 ML BAG IV SCH ×2 (01:53→07:45)
[2016-03-26] MEDS: MORPHINE SULFATE 15 MG TAB.PRT.SR PO SCH ×3 (05:00→21:16)
--- NOTE | 2016-03-26 07:06 | PDOC43 ---
- Subjective Chief Complaint: Rt hand pain and redness Subjective: Reports Pain Tolerable, Reports Tolerating Diet Well, Denies Fever - Objective Vital Signs Temperature 98.5 F 03/26/16 02:00 Pulse Rate 60 03/26/16 02:00 Respiratory Rate 12 03/26/16 02:00 Blood Pressure 107/60 03/26/16 02:00 O2 Saturation by Pulse Oximetry 97 03/26/16 02:00 Oxygen Delivery Method Room Air Oxygen Flow Rate 0 Intake and Output 03/25/16 03/26/16 03/27/16 06:59 06:59 06:59 Intake Total 3958 1335 Output Total 2 250 Balance 3956 1085 General: Alert, Oriented x3, Cooperative, No Acute Distress HEENT: Mucous membr. moist/pink Lungs: Clear to Auscultation Bilaterally Cardiovascular: Regular Rate and Rhythm Abdomen: Soft, Normal Bowel Sounds, Non-Distended, No Tenderness Extremities: Edema (of right hand stable, redness markedly improved) Peripheral Pulses: Radial (L): 2+, Radial (R): 2+ Wound: Dressing Clean/Dry/Intact Laboratory 03/24/16 05:30 03/23/16 06:30 Current Medications: Current meds reviewed in EMR. - Problems: Assessment/Plan (1) Palmar space infection of right hand Status: Acute Assessment/Plan: Caused by MRSA with many social barriers to outpatient management, is homeless without transportation-working with care management, anticipate 2 weeks of IV vancomycin started 111 p.m. anticipate treatment through at least 04/02, PICC placed 03/21. OT ordered for ROM. (2) IV drug abuse Status: Chronic Assessment/Plan: By history, last used IV meth one year ago VTE Prophylaxis: ASA and mech measures. Disposition: SNF placement pending bed availability, working with care management
[2016-03-26] MEDS: VANCOMYCIN HCL 1.75 G in SODIUM CHLORIDE 0.9% 500 ML IV SCH ×2 (07:45→20:07)
--- NOTE | 2016-03-26 08:38 | PDOC43 ---
- Subjective Findings: Ortho POD 10 R palmar I and D Patient awake, A and O times 4 this am. No present c/o. Hand pain is well controlled. Constipation improved. Aware of plan and efforts to find appropriate discharge facility for ongoing care. Subjective: Denies Chest Pain, Denies Shortness of Breath, Denies Nausea, Denies Vomiting, Denies Fever - Objective Vital Signs Temperature 97.8 F 03/26/16 07:02 Pulse Rate 55 03/26/16 07:02 Respiratory Rate 16 03/26/16 07:02 Blood Pressure 97/65 03/26/16 07:02 O2 Saturation by Pulse Oximetry 96 03/26/16 07:02 Oxygen Delivery Method Room Air Oxygen Flow Rate 0 Laboratory 03/24/16 05:30 03/23/16 06:30 Active Medication Orders Category Date Time Status Aspirin (Enteric Coated) [Ecotrin] Med 03/21/16 13:15 Active 325 mg PO DAILY Bisacodyl [Dulcolax] Med 03/18/16 16:30 Active 10 mg [place] DAILY PRN Docusate Sodium [Colace] Med 03/18/16 21:00 Active 100 mg PO BID Lidocaine 1% (Pres Free) Med 03/18/16 11:20 Active 2 - 5 ml PF X1 PRN Morphine Sulfate [Ms Contin] Med 03/24/16 21:00 Active 15 mg PO Q8H Nicotine 21 mg Patch [Nicoderm Cq] Med 03/21/16 14:30 Active 1 each TD Q24H Nicotine Polacrilex Lozenge [Commit Lozenge] Med 03/21/16 14:21 Active 2 mg PO Q1H PRN Ondansetron 4 mg/2ml Vial [Zofran] Med 03/16/16 22:09 Active 4 mg IV Q6H PRN Oxycodone HCl [Roxicodone] Med 03/24/16 11:23 Active 10 mg PO Q3H PRN Polyethylene Glycol 3350 [Miralax] Med 03/21/16 13:14 Active 17 g PO DAILY Sodium Chloride 0.9% Med 03/16/16 23:30 Active 100 ml IV PRN Sodium Chloride 0.9% Flush [Normal Saline 10ml Flush] Med 03/16/16 23:13 Active 10 ml IV PRN PRN Sodium Chloride 0.9% Flush [Normal Saline 10ml Flush] Med 03/17/16 01:00 Active 10 ml IV Q8HR Vancomycin HCl 1.75 g Med 03/19/16 19:30 Active Sodium Chloride 0.9% 500 ml IV Q12H Intake and Output 03/24/16 03/25/16 03/26/16 23:59 23:59 23:59 Intake Total 3963 2040 Output Total 252 Balance 3963 1788 Skin: Other (R palmar I and D healing by secondary intention, volar splint in place) Peripheral Pulses: Right Radial: 1+ - Right Upper Extremity Incision: No Well Approximated (R palmar I and D healing by secondary intention) , No Mikel Intact (none) Motor: Extensor Pollicis Longus: 3/5 (plus, limited mobility secondary to palmar wound), Finger Flexors: 3/5 (plus, limited mobility secondary to palmar wound), Finger Extensors: 3/5 (plus, limited mobility secondary to palmar wound) , Wrist Flexors: 4/5, Wrist Extensors: 4/5, Intrinsics: 3/5 (plus, limited mobility secondary to palmar wound), Biceps: 5/5, Triceps: 5/5, Deltoid: 5/5 Gross Sensation to Light Touch: Present: Median Nerve, Ulnar Nerve, Radial Nerve , Axillary Nerve Motion: full passive extension of digits without pain OOP. AROM limited composite fist. - Additional Comments Ortho POD 10 R hand palmar I and D. Labs positive for MRSA and currently on Vanco q 12 with improvement, no current leukocytosis. 1. Continue Vanco administration per pharmacy/ Hospitalist's input. 2. Continue planning for outpatient management of IV antibiotic administration and wound care. Steps consult requested by Dr. Miguel 4. Bowel protocol for constipation. 5. Pain medication as ordered, call for modification prn. 6. Appreciate Hospitalist's care.
[2016-03-26] MEDS: ASPIRIN (ENTERIC COATED) 325 MG TABLET.EC PO SCH (09:09)
[2016-03-26] MEDS: POLYETHYLENE GLYCOL 3350 17 G POWD.SUSP PO SCH (09:10)
[2016-03-26] MEDS: NICOTINE 21 MG PATCH 1 EACH TD SCH ×2 (13:13→18:20)
[2016-03-27] MEDS: SODIUM CHLORIDE 0.9% 100 ML BAG IV SCH ×2 (00:03→20:03)
[2016-03-27] MEDS: OXYCODONE HCL 5 MG TABLET PO PRN ×8 (00:06→20:59)
[2016-03-27] MEDS: MORPHINE SULFATE 15 MG TAB.PRT.SR PO SCH ×3 (05:06→20:59)
[2016-03-27] MEDS: BISACODYL 10 MG SUP PR PRN (05:06)
[2016-03-27 06:44] LABS: VANCOMYCIN TROUGH 19.4 ug/ml (5.0-10.0)
--- NOTE | 2016-03-27 09:00 | PDOC43 ---
- Subjective Findings: Pt seen this morning up and doing fine. Pain seems better today. Subjective: Reports Flatus (Has had a BM during stay), Reports Pain Tolerable, Denies Chest Pain, Denies Shortness of Breath, Denies Nausea, Denies Vomiting, Denies Fever - Objective Vital Signs Temperature 97.6 F 03/27/16 08:00 Pulse Rate 58 03/27/16 08:00 Respiratory Rate 16 03/27/16 08:00 Blood Pressure 99/52 03/27/16 08:00 O2 Saturation by Pulse Oximetry 97 03/27/16 08:00 Oxygen Delivery Method Room Air Oxygen Flow Rate 0 Laboratory 03/24/16 05:30 03/27/16 06:00 03/27/16 06:00 Vancomycin Trough 19.4 H Active Medication Orders Category Date Time Status Aspirin (Enteric Coated) [Ecotrin] Med 03/21/16 13:15 Active 325 mg PO DAILY Bisacodyl [Dulcolax] Med 03/18/16 16:30 Active 10 mg [place] DAILY PRN Docusate Sodium [Colace] Med 03/18/16 21:00 Active 100 mg PO BID Lidocaine 1% (Pres Free) Med 03/18/16 11:20 Active 2 - 5 ml PF X1 PRN Morphine Sulfate [Ms Contin] Med 03/24/16 21:00 Active 15 mg PO Q8H Nicotine 21 mg Patch [Nicoderm Cq] Med 03/21/16 14:30 Active 1 each TD Q24H Nicotine Polacrilex Lozenge [Commit Lozenge] Med 03/21/16 14:21 Active 2 mg PO Q1H PRN Ondansetron 4 mg/2ml Vial [Zofran] Med 03/16/16 22:09 Active 4 mg IV Q6H PRN Oxycodone HCl [Roxicodone] Med 03/24/16 11:23 Active 10 mg PO Q3H PRN Polyethylene Glycol 3350 [Miralax] Med 03/21/16 13:14 Active 17 g PO DAILY Sodium Chloride 0.9% Med 03/16/16 23:30 Active 100 ml IV PRN Sodium Chloride 0.9% Flush [Normal Saline 10ml Flush] Med 03/16/16 23:13 Active 10 ml IV PRN PRN Sodium Chloride 0.9% Flush [Normal Saline 10ml Flush] Med 03/17/16 01:00 Active 10 ml IV Q8HR Sodium Chloride 0.9% Flush [Normal Saline 10ml Flush] Med 03/27/16 01:00 Active 10 ml IV Q8HR Vancomycin HCl 1.25 g Med 03/27/16 19:30 Active Sodium Chloride 0.9% 250 ml IV Q12H Intake and Output 03/25/16 03/26/16 03/27/16 23:59 23:59 23:59 Intake Total 2040 1470 1702 Output Total 252 Balance 1788 1470 1702 General: Afebrile HEENT: Atraumatic Lungs: Normal Air Movement Abdomen: Soft, Non-Distended Skin: Normal Color Neurological: Alert, Oriented x 4 Psych/Mental Status: Normal Affect - Right Upper Extremity Incision: Dressing Clean/Dry/Intact Motor: Extensor Pollicis Longus: 3/5, Finger Flexors: 3/5, Finger Extensors: 3/5 Gross Sensation to Light Touch: Present: Median Nerve, Ulnar Nerve Capillary Refill: < 3 Seconds Motion: Swelling continues to improve Dressing was changed yesterday afternoon by nursing. It was not removed for eval today Passive Rom of fingers less painful each day - Problems (1) Palmar space infection of right hand Status: Acute Assessment/Plan: POD#11 from I&D of right hand for palmar infection 1. Physical Therapy: patient in splint and elevated to reduce swelling. Encouraged both active and passive motion of fingers 2. Pain Control: Oxycodone for pain. 3. DVT Prophylaxis: mechanical and ambulation 4. Disposition: working on placement, may need repeat I&D if he clinically worsens, will definitely need ongoing abx and wound care 5. Medical Issues: Waiting for facility placement. Will sign off to the hospitalist unless condition worsens and he needs repeat I&D.
[2016-03-27] MEDS: ASPIRIN (ENTERIC COATED) 325 MG TABLET.EC PO SCH (09:19)
[2016-03-27] MEDS: DOCUSATE SODIUM 100 MG CAPSULE PO SCH ×2 (09:19→20:59)
[2016-03-27] MEDS: POLYETHYLENE GLYCOL 3350 17 G POWD.SUSP PO SCH (09:20)
--- NOTE | 2016-03-27 12:39 | PDOC43 ---
- Subjective Chief Complaint: Rt hand pain and redness Subjective: Reports Pain Tolerable, Reports Tolerating Diet Well, Denies Fever - Objective Vital Signs Temperature 97.6 F 03/27/16 08:00 Pulse Rate 58 03/27/16 08:00 Respiratory Rate 16 03/27/16 08:00 Blood Pressure 99/52 03/27/16 08:00 O2 Saturation by Pulse Oximetry 97 03/27/16 08:00 Oxygen Delivery Method Room Air Oxygen Flow Rate 0 Intake and Output 03/26/16 03/27/16 03/28/16 06:59 06:59 06:59 Intake Total 1335 3172 Output Total 250 Balance 1085 3172 General: Alert, Oriented x3, Cooperative, No Acute Distress HEENT: Mucous membr. moist/pink Lungs: Clear to Auscultation Bilaterally Cardiovascular: Regular Rate and Rhythm Abdomen: Soft, Normal Bowel Sounds, Non-Distended, No Tenderness Extremities: No Edema Wound: Dressing Saturated (and changed) Laboratory 03/24/16 05:30 03/27/16 06:00 03/27/16 06:00 Vancomycin Trough 19.4 H Current Medications: Current meds reviewed in EMR. - Problems: Assessment/Plan (1) Palmar space infection of right hand Status: Acute Assessment/Plan: Caused by MRSA with many social barriers to outpatient management, is homeless without transportation-working with care management, anticipate 2 weeks of IV vancomycin started 11 p.m. anticipate treatment through at least 04/02, PICC placed 03/21. OT ordered for ROM. (2) IV drug abuse Status: Chronic Assessment/Plan: By history, last used IV meth one year ago VTE Prophylaxis: ASA and mech measures. Disposition: SNF placement pending bed availability, working with care management
[2016-03-27] MEDS: NICOTINE 21 MG PATCH 1 EACH TD SCH (15:16)
[2016-03-27] MEDS ORDERED: PUMP TUBING ONE (19:39)
[2016-03-27] MEDS: VANCOMYCIN HCL 1.25 G in SODIUM CHLORIDE 0.9% 250 ML IV SCH (20:03)
[2016-03-28] MEDS: OXYCODONE HCL 5 MG TABLET PO PRN ×8 (00:45→22:25)
[2016-03-28] MEDS: SODIUM CHLORIDE 0.9% 100 ML BAG IV SCH (02:07)
[2016-03-28] MEDS: MORPHINE SULFATE 15 MG TAB.PRT.SR PO SCH ×3 (04:45→22:39)
[2016-03-28] MEDS: VANCOMYCIN HCL 1.25 G in SODIUM CHLORIDE 0.9% 250 ML IV SCH ×2 (07:41→19:11)
[2016-03-28] MEDS: POLYETHYLENE GLYCOL 3350 17 G POWD.SUSP PO SCH (09:10)
[2016-03-28] MEDS: DOCUSATE SODIUM 100 MG CAPSULE PO SCH ×2 (09:10→20:38)
[2016-03-28] MEDS: ASPIRIN (ENTERIC COATED) 325 MG TABLET.EC PO SCH (09:10)
--- NOTE | 2016-03-28 12:20 | PDOC43 ---
- Subjective Chief Complaint: Rt hand pain and redness Subjective: Reports Pain Tolerable, Reports Tolerating Diet Well, Denies Fever - Objective Vital Signs Temperature 98.3 F 03/28/16 08:07 Pulse Rate 64 03/28/16 08:07 Respiratory Rate 16 03/28/16 08:07 Blood Pressure 133/81 03/28/16 08:07 O2 Saturation by Pulse Oximetry 93 03/28/16 08:07 Oxygen Delivery Method Room Air Oxygen Flow Rate 0 Intake and Output 03/27/16 03/28/16 03/29/16 06:59 06:59 06:59 Intake Total 3172 2076 Output Total 3 Balance 3172 2073 General: Alert, Oriented x3, Cooperative, No Acute Distress HEENT: Mucous membr. moist/pink Lungs: Clear to Auscultation Bilaterally Cardiovascular: Regular Rate and Rhythm Abdomen: Soft, Normal Bowel Sounds, Non-Distended, No Tenderness Wound: Dressing Clean/Dry/Intact Laboratory 03/24/16 05:30 03/28/16 09:15 Current Medications: Current meds reviewed in EMR. - Problems: Assessment/Plan (1) Palmar space infection of right hand Status: Acute Assessment/Plan: Caused by MRSA with many social barriers to outpatient management, is homeless without transportation-working with care management, anticipate 2 weeks of IV vancomycin started 11 p.m. anticipate treatment through at least 04/02, PICC placed 03/21. OT ordered for ROM. (2) IV drug abuse Status: Chronic Assessment/Plan: By history, last used IV meth one year ago VTE Prophylaxis: ASA and mech measures. Disposition: SNF placement pending bed availability, working with care management
[2016-03-28] MEDS: BISACODYL 10 MG SUP PR PRN (13:18)
[2016-03-28] MEDS: NICOTINE 21 MG PATCH 1 EACH TD SCH (14:28)
[2016-03-29] MEDS: OXYCODONE HCL 5 MG TABLET PO PRN ×7 (01:17→21:15)
[2016-03-29] MEDS: SODIUM CHLORIDE 0.9% 100 ML BAG IV SCH (01:26)
[2016-03-29] MEDS: MORPHINE SULFATE 15 MG TAB.PRT.SR PO SCH ×3 (04:49→20:13)
[2016-03-29] MEDS: VANCOMYCIN HCL 1.25 G in SODIUM CHLORIDE 0.9% 250 ML IV SCH (07:40)
[2016-03-29] MEDS: VANCOMYCIN HCL 1.5 G in SODIUM CHLORIDE 0.9% 500 ML IV SCH ×2 (08:08→20:13)
[2016-03-29] MEDS ORDERED: PUMP TUBING ONE (08:17)
[2016-03-29] MEDS: ASPIRIN (ENTERIC COATED) 325 MG TABLET.EC PO SCH (08:33)
[2016-03-29] MEDS: POLYETHYLENE GLYCOL 3350 17 G POWD.SUSP PO SCH (08:33)
[2016-03-29] MEDS: DOCUSATE SODIUM 100 MG CAPSULE PO SCH ×2 (08:33→20:13)
[2016-03-29] MEDS: NICOTINE 21 MG PATCH 1 EACH TD SCH (14:58)
--- NOTE | 2016-03-29 15:38 | PDOC43 ---
- Subjective Chief Complaint: Rt hand pain and redness Patient doing well, no concerns, hand is painful Subjective: Reports Pain Tolerable, Reports Tolerating Diet Well, Reports Adequate Oral Intake, Reports Bowel Movement, Reports Urinating Without Difficulty, Denies Shortness of Breath, Denies Cough, Denies Chest Pain, Denies Abdominal Pain, Denies Nausea, Denies Vomiting - Objective Vital Signs Temperature 98.0 F 03/29/16 14:00 Pulse Rate 80 03/29/16 14:00 Respiratory Rate 18 03/29/16 14:00 Blood Pressure 130/80 03/29/16 14:00 O2 Saturation by Pulse Oximetry 100 03/29/16 14:00 Oxygen Delivery Method Room Air Oxygen Flow Rate 0 Intake and Output 03/27/16 03/28/16 03/29/16 23:59 23:59 23:59 Intake Total 2102 3436 1356 Output Total 853 Balance 2102 2583 1356 General: Alert, Oriented x3, Cooperative, No Acute Distress HEENT: Atraumatic, Mucous membr. moist/pink Lungs: Clear to Auscultation Bilaterally, Normal Air Movement Cardiovascular: Regular Rate and Rhythm, Normal S1, Normal S2 Abdomen: Soft, Non-Distended, No Rigid, No Tenderness, No Rebounding Extremities: Other (RLE with splint), No Cyanosis, No Edema, No Tenderness Neurological: Normal Speech Psych/Mental Status: Normal Mood Laboratory 03/24/16 05:30 03/29/16 05:30 03/29/16 05:30 Vancomycin Trough 12.0 H Current Medications: Current meds reviewed in EMR. - Problems: Assessment/Plan (1) Palmar space infection of right hand Status: Acute Assessment/Plan: Caused by MRSA with many social barriers to outpatient management, is homeless without transportation-working with care management, anticipate 2 weeks of IV vancomycin started 11 p.m. anticipate treatment through at least 04/02, PICC placed 03/21. OT ordered for ROM. ROA to [facility] 03/31/2016 (2) Pain Status: Acute Assessment/Plan: Needing frequent dosing of oral pain meds, will start MSER for temporary use during acute treatment, no intended for rn long term care treatment. (3) Anemia Qualifiers: Anemia type: unspecified type Qualifier Code: (D64.9) Anemia, unspecified Status: Chronic Assessment/Plan: Chronic, exacerbated by hydration, evaluate for underlying condition. Iron, folate and B12 normal. (4) IV drug abuse Status: Chronic Assessment/Plan: By history, last used IV meth one year ago VTE Prophylaxis: ASA and mech measures. Disposition: SNF placement pending bed availability, working with care management CRISPIN Jerez 03/31
[2016-03-30] MEDS: OXYCODONE HCL 5 MG TABLET PO PRN ×8 (00:09→21:00)
[2016-03-30] MEDS: SODIUM CHLORIDE 0.9% 100 ML BAG IV SCH ×2 (00:09→23:58)
[2016-03-30] MEDS: MORPHINE SULFATE 15 MG TAB.PRT.SR PO SCH ×3 (06:22→21:00)
[2016-03-30] MEDS: ASPIRIN (ENTERIC COATED) 325 MG TABLET.EC PO SCH (08:41)
[2016-03-30] MEDS: POLYETHYLENE GLYCOL 3350 17 G POWD.SUSP PO SCH (08:41)
[2016-03-30] MEDS: DOCUSATE SODIUM 100 MG CAPSULE PO SCH ×2 (08:41→21:00)
[2016-03-30] MEDS: VANCOMYCIN HCL 1.5 G in SODIUM CHLORIDE 0.9% 500 ML IV SCH ×2 (08:41→20:59)
--- NOTE | 2016-03-30 13:59 | PDOC43 ---
- Subjective Chief Complaint: Rt hand pain and redness Relaxing, states had is much better, no complaints. - Objective Vital Signs Temperature 98.1 F 03/30/16 07:00 Pulse Rate 65 03/30/16 07:00 Respiratory Rate 10 03/30/16 07:00 Blood Pressure 113/77 03/30/16 07:00 O2 Saturation by Pulse Oximetry 98 03/30/16 07:00 Oxygen Delivery Method Room Air Oxygen Flow Rate 0 Intake and Output 03/29/16 03/30/16 03/31/16 06:59 06:59 06:59 Intake Total 3116 3256 Output Total 850 Balance 2266 3256 General: Alert, Oriented x3, Cooperative, No Acute Distress HEENT: Mucous membr. moist/pink Lungs: Clear to Auscultation Bilaterally Cardiovascular: Regular Rate and Rhythm, No Murmur Extremities: No Edema Skin: Normal Color Wound: Dressing Clean/Dry/Intact (on right hand) Neurological: Normal Speech Psych/Mental Status: Normal Mood Laboratory 03/24/16 05:30 03/29/16 05:30 Current Medications: Current meds reviewed in EMR. - Problems: Assessment/Plan (1) Palmar space infection of right hand Status: Acute Assessment/Plan: Caused by MRSA with many social barriers to outpatient management, is homeless without transportation-working with care management, anticipate 2 weeks of IV vancomycin started 03/19 p.m. anticipate treatment through at least 04/02, PICC placed 03/21. OT ordered for ROM. Ortho to examine wound prior to discharge for guidance on continued vancomycin treatment. DC to [facility] 03/31/2016 (2) Pain Status: Acute Assessment/Plan: Stable on MSER 15 mg TID with occasional oxycodone IR 10 mg. MSER for temporary use during acute treatment, no intended for detention treatment. (3) Anemia Qualifiers: Anemia type: unspecified type Qualifier Code: (D64.9) Anemia, unspecified Status: Chronic Assessment/Plan: Chronic, exacerbated by hydration, evaluate for underlying condition. Iron, folate and B12 normal. FOBT negative x 1. (4) IV drug abuse Status: Chronic Assessment/Plan: By history, last used IV meth one year ago VTE Prophylaxis: ASA and mech measures. Disposition: discharge to [facility] 03/31.
[2016-03-30] MEDS: NICOTINE 21 MG PATCH 1 EACH TD SCH (14:56)
[2016-03-30 20:09] LABS: VANCOMYCIN TROUGH 14.6 ug/ml (5.0-10.0)
[2016-03-31] MEDS: OXYCODONE HCL 5 MG TABLET PO PRN ×7 (00:11→22:42)
[2016-03-31] MEDS: MORPHINE SULFATE 15 MG TAB.PRT.SR PO SCH ×4 (03:52→21:17)
[2016-03-31] MEDS ORDERED: PUMP TUBING ONE (09:20)
[2016-03-31] MEDS: SODIUM CHLORIDE 0.9% 100 ML BAG IV SCH (09:23)
[2016-03-31] MEDS: VANCOMYCIN HCL 1.5 G in SODIUM CHLORIDE 0.9% 500 ML IV SCH ×2 (09:24→21:17)
[2016-03-31] MEDS: POLYETHYLENE GLYCOL 3350 17 G POWD.SUSP PO SCH (09:29)
[2016-03-31] MEDS: DOCUSATE SODIUM 100 MG CAPSULE PO SCH ×2 (09:30→21:17)
[2016-03-31] MEDS: ASPIRIN (ENTERIC COATED) 325 MG TABLET.EC PO SCH (09:30)
--- NOTE | 2016-03-31 09:44 | PDOC43 ---
- Subjective Chief Complaint: Rt hand pain and redness Hand is still painful but getting better. No other complaints. - Objective Vital Signs Temperature 98.8 F 03/31/16 07:28 Pulse Rate 64 03/31/16 07:28 Respiratory Rate 17 03/31/16 07:28 Blood Pressure 127/84 03/31/16 07:28 O2 Saturation by Pulse Oximetry 100 03/31/16 07:28 Oxygen Delivery Method Room Air Oxygen Flow Rate 0 Intake and Output 03/30/16 03/31/16 04/01/16 06:59 06:59 06:59 Intake Total 3256 4120 360 Balance 3256 4120 360 General: Alert, Oriented x3, Cooperative, No Acute Distress HEENT: Mucous membr. moist/pink Lungs: Clear to Auscultation Bilaterally Cardiovascular: Regular Rate and Rhythm Abdomen: Soft, Normal Bowel Sounds, No Tenderness, No Masses Extremities: Normal Pulses, No Edema Wound: Dressing Clean/Dry/Intact (on right hand) Neurological: Normal Speech Psych/Mental Status: Normal Mood Laboratory 03/24/16 05:30 03/30/16 19:30 03/30/16 19:30 Vancomycin Trough 14.6 H Current Medications: Current meds reviewed in EMR. - Problems: Assessment/Plan (1) Palmar space infection of right hand Status: Acute Assessment/Plan: Caused by MRSA with many social barriers to outpatient management, is homeless without transportation-working with care management, anticipate 2 weeks of IV vancomycin started 11 p.m. anticipate treatment through at least 04/02, PICC placed 03/21. OT ordered for ROM. Discussed with orthopedics on 03/31 a.m. and due to severity of infection, continued vancomycin for at least 3-4 weeks was recommended. Anticipate discharge to SNF on continued vancomycin and outpatient f/u in ortho clinic. (2) Pain Status: Acute Assessment/Plan: Stable on MSER 15 mg TID with occasional oxycodone IR 10 mg. MSER for temporary use during acute treatment, no intended for nursing home treatment. (3) Anemia Qualifiers: Anemia type: unspecified type Qualifier Code: (D64.9) Anemia, unspecified Status: Chronic Assessment/Plan: Chronic, exacerbated by hydration. Iron, folate and B12 normal. FOBT negative x 1. (4) IV drug abuse Status: Chronic Assessment/Plan: By history, last used IV meth one year ago VTE Prophylaxis: ASA and ambulation, patient is low risk for VTE. Disposition: discharge to [facility] planned for 03/31 but delayed due to bed availability.
[2016-03-31] MEDS: NICOTINE 21 MG PATCH 1 EACH TD SCH (14:53)
[2016-04-01] MEDS: SODIUM CHLORIDE 0.9% 100 ML BAG IV SCH (01:18)
[2016-04-01] MEDS: OXYCODONE HCL 5 MG TABLET PO PRN ×7 (01:43→23:11)
[2016-04-01] MEDS: MORPHINE SULFATE 15 MG TAB.PRT.SR PO SCH ×3 (04:57→21:08)
[2016-04-01] MEDS: POLYETHYLENE GLYCOL 3350 17 G POWD.SUSP PO SCH (08:19)
[2016-04-01] MEDS: VANCOMYCIN HCL 1.5 G in SODIUM CHLORIDE 0.9% 500 ML IV SCH ×2 (08:19→21:07)
[2016-04-01] MEDS: ASPIRIN (ENTERIC COATED) 325 MG TABLET.EC PO SCH (08:20)
[2016-04-01] MEDS: DOCUSATE SODIUM 100 MG CAPSULE PO SCH ×2 (08:20→21:08)
[2016-04-01] MEDS ORDERED: PUMP TUBING ONE (08:22)
[2016-04-01] MEDS: NICOTINE 21 MG PATCH 1 EACH TD SCH (15:22)
--- NOTE | 2016-04-01 16:02 | PDOC43 ---
- Subjective Chief Complaint: Rt hand pain and redness Patient doing well, no questions or concerns. He is anxious to be discharged, wondering if he can take oral ABx. Explained that due to the location of the infection, IV ABx are indicated and he was accepting of this. Subjective: Reports Pain Tolerable, Reports Tolerating Diet Well, Reports Adequate Oral Intake, Reports Bowel Movement, Reports Urinating Without Difficulty, Reports Other (RUE pain), Denies Shortness of Breath, Denies Cough, Denies Chest Pain, Denies Abdominal Pain, Denies Nausea, Denies Vomiting - Objective Vital Signs Temperature 98.0 F 04/01/16 13:30 Pulse Rate 66 04/01/16 13:30 Respiratory Rate 20 04/01/16 13:30 Blood Pressure 127/78 04/01/16 13:30 O2 Saturation by Pulse Oximetry 98 04/01/16 13:30 Oxygen Delivery Method Room Air Oxygen Flow Rate 0 Intake and Output 03/30/16 03/31/16 04/01/16 23:59 23:59 23:59 Intake Total 4446 3365 2423 Output Total 1750 Balance 4446 3365 673 General: Alert, Oriented x3, Cooperative, No Acute Distress HEENT: Atraumatic, PERRLA, EOMI, Mucous membr. moist/pink Lungs: Clear to Auscultation Bilaterally, Normal Air Movement Cardiovascular: Regular Rate and Rhythm, Normal S1, Normal S2 Abdomen: Soft, Non-Distended, No Rigid, No Tenderness, No Rebounding Extremities: Other (RUE splinted), No Cyanosis, No Edema, No Tenderness Neurological: Normal Speech Psych/Mental Status: Normal Mood Laboratory 03/24/16 05:30 03/30/16 19:30 Current Medications: Current meds reviewed in EMR. - Problems: Assessment/Plan (1) Palmar space infection of right hand Status: Acute Assessment/Plan: Caused by MRSA with many social barriers to outpatient management, is homeless without transportation-working with care management, anticipate 2 weeks of IV vancomycin started 03/19 p.m. anticipate treatment through at least 04/02, PICC placed 03/21. OT ordered for ROM. Discussed with orthopedics on 03/31 a.m. and due to severity of infection, continued vancomycin for at least 3-4 weeks was recommended. Anticipate discharge to SNF on continued vancomycin and outpatient f/u in ortho clinic. (2) Pain Status: Acute Assessment/Plan: Stable on MSER 15 mg TID with occasional oxycodone IR 10 mg. MSER for temporary use during acute treatment, no intended for [facility] treatment. (3) Anemia Qualifiers: Anemia type: unspecified type Qualifier Code: (D64.9) Anemia, unspecified Status: Chronic Assessment/Plan: Chronic, exacerbated by hydration. Iron, folate and B12 normal. FOBT negative x 1. (4) IV drug abuse Status: Chronic Assessment/Plan: By history, last used IV meth one year ago VTE Prophylaxis: ASA and ambulation, patient is low risk for VTE. Disposition: discharge to [facility] planned for 03/31 but delayed due to bed availability.
[2016-04-02] MEDS: SODIUM CHLORIDE 0.9% 100 ML BAG IV SCH (01:44)
[2016-04-02] MEDS: MORPHINE SULFATE 15 MG TAB.PRT.SR PO SCH (05:24)
[2016-04-02 07:37] VITALS: BP 113/77
[2016-04-02] MEDS: VANCOMYCIN HCL 1.5 G in SODIUM CHLORIDE 0.9% 500 ML IV SCH (08:02)
[2016-04-02] MEDS: OXYCODONE HCL 5 MG TABLET PO PRN ×2 (08:04→11:16)
[2016-04-02] MEDS: DOCUSATE SODIUM 100 MG CAPSULE PO SCH (08:04)
[2016-04-02] MEDS: ASPIRIN (ENTERIC COATED) 325 MG TABLET.EC PO SCH (08:04)
[2016-04-02] MEDS: POLYETHYLENE GLYCOL 3350 17 G POWD.SUSP PO SCH (08:04)
--- NOTE | 2016-04-02 11:18 | PDOC43 ---
- Subjective Chief Complaint: Rt hand pain and redness Patient reports doing ok, no new c/o. Eager to go today. - Objective Vital Signs Temperature 97.6 F 04/02/16 07:36 Pulse Rate 63 04/02/16 07:36 Respiratory Rate 17 04/02/16 07:36 Blood Pressure 113/77 04/02/16 07:36 O2 Saturation by Pulse Oximetry 97 04/02/16 07:36 Oxygen Delivery Method Room Air Oxygen Flow Rate 0 Vital Signs Last 12 Hours Temp Pulse Resp BP Pulse Ox 04/02/16 07:36 97.6 F 63 17 113/77 97 04/02/16 03:00 18 04/02/16 02:10 97.9 F 64 18 108/72 97 Intake and Output 03/31/16 04/01/16 04/02/16 23:59 23:59 23:59 Intake Total 3365 3423 980 Output Total 1750 Balance 3365 1673 980 General: Alert, Cooperative, No Acute Distress Lungs: Clear to Auscultation Bilaterally, Normal Air Movement Cardiovascular: Regular Rate and Rhythm Abdomen: Soft, Normal Bowel Sounds, Non-Distended Extremities: Other (R hand dressed. Considerable peeling on both hands), No Edema Skin: Normal Color Neurological: Normal Speech Psych/Mental Status: Normal Affect, Normal Mood Laboratory 03/24/16 05:30 03/30/16 19:30 04/01/16 20:23 Vancomycin Trough 14.3 H Current Medications: Current meds reviewed in EMR. Active Medications Aspirin (Ecotrin) 325 mg PO DAILY [facility] Last Admin: 04/02/16 08:04 Dose: 325 mg Bisacodyl (Dulcolax) 10 mg OK DAILY PRN PRN Reason: Constipation Last Admin: 03/28/16 13:18 Dose: 10 mg Docusate Sodium (Colace) 100 mg PO BID [facility] Last Admin: 04/02/16 08:04 Dose: 100 mg Vancomycin HCl 1.5 g/ Sodium (Chloride) 530 mls @ 353.33 mls/hr IV Q12H CHITO PRN Reason: Protocol Last Admin: 04/02/16 08:02 Dose: 353.33 mls/hr Lidocaine HCl (Lidocaine 1% (Pres Free)) 2 - 5 ml PF X1 PRN PRN Reason: Pain from PICC line placement Last Admin: 03/21/16 12:20 Dose: 3 ml Morphine Sulfate (Ms Contin) 15 mg PO Q8H [facility] Last Admin: 04/02/16 05:24 Dose: 15 mg Nicotine (Nicoderm Cq) 1 each TD Q24H [facility] Last Admin: 04/01/16 15:22 Dose: 1 each Nicotine Polacrilex (Commit Lozenge) 2 mg PO Q1H PRN PRN Reason: Withdrawal Symptoms Last Admin: 03/21/16 14:33 Dose: 2 mg Ondansetron HCl (Zofran) 4 mg IV Q6H PRN PRN Reason: Nausea/Vomiting Oxycodone HCl (Roxicodone) 10 mg PO Q3H PRN PRN Reason: Pain Last Admin: 04/02/16 08:04 Dose: 10 mg Polyethylene Glycol/Electrolytes (Miralax) 17 g PO DAILY [facility] Last Admin: 04/02/16 08:04 Dose: 17 g Sodium Chloride (Normal Saline 10ml Flush) 10 ml IV Q8HR [facility] Last Admin: 04/02/16 08:02 Dose: 10 ml Sodium Chloride (Normal Saline 10ml Flush) 10 ml IV PRN PRN Last Admin: 04/01/16 23:12 Dose: 10 ml Sodium Chloride (Sodium Chloride 0.9%) 100 ml IV PRN [facility] Last Admin: 04/02/16 01:44 Dose: Not Given - Problems: Assessment/Plan (1) Palmar space infection of right hand Status: Acute Assessment/Plan: Caused by MRSA with many social barriers to outpatient management, Appreciate care management, anticipate 2 weeks of IV vancomycin started 03/19 p.m. anticipate treatment through at least 04/09, PICC placed 03/21. OT ordered for ROM. Discussed with orthopedics on 03/31 a.m. and due to severity of infection, continued vancomycin for at least 3-4 weeks was recommended. Anticipate discharge to SNF on continued vancomycin and outpatient f/u in ortho clinic. (2) Pain Status: Acute Assessment/Plan: Stable on MSER 15 mg TID with occasional oxycodone IR 10 mg. MSER for temporary use during acute treatment, no intended for [facility] treatment. (3) Anemia Qualifiers: Anemia type: unspecified type Qualifier Code: (D64.9) Anemia, unspecified Status: Chronic Assessment/Plan: Chronic, exacerbated by hydration. Iron, folate and B12 normal. FOBT negative x 1. (4) IV drug abuse Status: Chronic Assessment/Plan: By history, last used IV meth one year ago VTE Prophylaxis: ASA and ambulation, patient is low risk for VTE. Disposition: discharge to [facility] planned today; had been delayed due to bed availability.
--- NOTE | 2016-04-02 13:00 | DS ---
Bryan Chaney [place] [id number] DATE OF ADMISSION: 03/16/2016 DATE OF DISCHARGE: 04/02/2016 DISCHARGE DIAGNOSES: 1. Right hand palmar space infection with methicillin resistant Staph aureus. 2. Anemia due to illness. 3. Intravenous drug abuse. 4. Chronic pain concerns. 5. Homeless status. REASON FOR ADMISSION: Patient is a 56-year-old right handed male who presented regarding a draining abscess on the palm of the right hand. He reported doing some wood cutting with a hatchet and about two days later the hand became swollen and painful with an area on the palmar surface which has been draining. He presented to the emergency department and it was not clear whether there is a puncture wound or a sliver may have entered. He underwent orthopedic consultation and it was treated as a surgical emergency with incision and drainage and exploration of the right hand. He underwent hospitalist consultation for assistance with managing infection on March 18, 2016. At that time, culture had resulted in methicillin resistant Staph aureus and some unspecified gram negative bacilli responding to vancomycin therapy. He underwent PICC line placement. His other labs on initial evaluation showed a white count of 16.8, hemoglobin 11.4, sed rate of 30, sodium 134, potassium 3.9, chloride 103, BUN 18, creatinine 1.0, glucose 124, C-reactive protein 11.7, albumin 3.5, globulin 2.8, AST 15, ALT 13. He underwent additional studies during his hospitalization showing a iron of 62, a ferritin of 62.6, B12 of 242, and a folic acid of 10.1. Patient had a uneventful stay although, placement was a concern for him and was delayed many times. His labs on last check on 03/24/2016 showed a white count of 5.9, hemoglobin 10.8, platelets 388. His creatinine remained stable at 0.9. Social work and care mangers worked to find placement for him and by 04/02/2016 [facility] had agreed to accept him and he is anticipated to be discharged there for at least one additional week of IV antibiotics, possibly more depending healing and orthopedic opinion. DISCHARGE MEDICATIONS: Will be: 1. Aspirin 325 mg daily. 2. Docusate 100 mg by mouth twice daily. 3. Morphine sulfate. 4. MS Contin 15 mg by mouth every 8 hours. 5. Nicotine 21 mg patch daily. 6. Lozenge 2 mg by mouth every 1 hour as needed. 7. Oxycodone 10 mg by mouth every 3 hours as needed. 8. MiraLax 17 gm by mouth daily. 9. Vancomycin 1.5 gm IV every 12 hours. 10. It is noted that not anticipated that he should be on alf narcotic therapy. DIET: Regular. ACTIVITY: As tolerated. FOLLOW UP: Follow up appointment will be with Dr. Naga Miguel 04/08/2016 at 8:30 a.m., Jose Henry 04/08/2016 at 3:10 p.m., and he also will be follow up with [facility]. He has a alf plan for low cost housing and may be living with his mom to pull resources for this as well. JOB: [id number] CC: Dr. Naga Henry
== END 2016-04-02 12:00 | DRG 580 ==
LOC: ED 15:51 → SDC 18:40 → MS 18:41 → SDC 19:47 → MS 03-17 17:22 → SDC 03-17 17:22 → UNDOADMIN 03-17 17:23 → MS 03-17 17:23
PROVIDERS: ADMIT Orthopaedic Surgery; ATTEND Orthopaedic Surgery
PROC: 0J9J0ZZ Drainage of Right Hand Subcutaneous Tissue and Fascia, Open Approach (ICD-10-PCS; principal; 2016-03-16)
PROC: 01N50ZZ Release Median Nerve, Open Approach (ICD-10-PCS; 2016-03-16)
PROC: 02HV33Z Insertion of Infusion Device into Superior Vena Cava, Percutaneous Approach (ICD-10-PCS; 2016-03-21)
DX: L02.511 Cutaneous abscess of right hand (principal); F19.20 Other psychoactive substance dependence, uncomplicated; M79.5 Residual foreign body in soft tissue; A49.02 Methicillin resistant Staphylococcus aureus infection, unspecified site; F17.210 Nicotine dependence, cigarettes, uncomplicated; F12.20 Cannabis dependence, uncomplicated; G56.01 Carpal tunnel syndrome, right upper limb; D64.9 Anemia, unspecified; G89.29 Other chronic pain; Z59.0 Homelessness